=== PATIENT | female | born 1945 ===

== ENCOUNTER 2017-09-10 12:56 | Emergency (ER) | payer OTHER ==
[~2017-09-10] VITALS: Ht 162.6 cm; Wt 71.7 kg
[~2017-09-10 12:56] MED LIST: LASIX20 MG; LEVAQUIN750 MG PO; MEDROL4 MG; PROVENTIL0.5 ML/2.5; SINGULAIR10 MG; ZITHROMAX500 MG
[2017-09-10] MEDS ORDERED: CARVEDILOL3.125 MG (13:37)
[2017-09-10] MEDS ORDERED: PLAVIX75 MG (13:37)
[2017-09-10] MEDS ORDERED: ZYRTEC10 M3 (13:38)
[2017-09-10] MEDS ORDERED: STOOL SOFTENER240 MG (13:39)
== END 2017-09-10 16:25 | disposition home or self-care (01) ==
LOC: ER 12:56
DX: K59.09 Other constipation (principal)

== ENCOUNTER 2020-12-18 10:30 | Outpatient (CLI) | payer OTHER ==
[~2020-12-18 10:30] MED LIST changes: +CARVEDILOL3.125 MG; +PLAVIX75 MG; +STOOL SOFTENER240 MG; +ZYRTEC10 M3
== END 2020-12-18 10:45 | disposition home or self-care (01) ==
LOC: PPH VACUNA 10:30
PROVIDERS: ATTEND Emergency Medicine Pediatric Emergency Medicine
DX: Z23 Encounter for immunization (principal)

== ENCOUNTER → 2021-01-08 | Outpatient (CLI) | payer OTHER | END | disposition home or self-care (01) | LOC: PPH VACUNA 07:00 | PROVIDERS: ATTEND Emergency Medicine Pediatric Emergency Medicine | DX: Z23 Encounter for immunization (principal) ==

== ENCOUNTER 2021-07-09 11:30 | Outpatient (CLI) | payer OTHER | END 2021-07-09 11:45 | disposition home or self-care (01) | LOC: PPH VACUNA 11:30 | PROVIDERS: ATTEND Emergency Medicine Pediatric Emergency Medicine | DX: Z23 Encounter for immunization (principal) ==